=== PATIENT | female | born 2000 | race Hispanic/Latino ===

== ENCOUNTER → 2023-07-18 10:20 | Outpatient (REF) | payer OTHER, SELFPAY ==
[2023-07-18 11:13] LABS: % Basophils 0.8 % (0-2); % Immature Granulocytes 0.3 % (0-0.5); % Lymphocytes 37.4 % (20.5-51.1); % Monocytes 5.6 % (1.7-9.3); % Neutrophils 54.9 % (42.2-75.2); Absolute Lymphocytes 1.5 10^3/uL (1.2-3.4); Absolute Monocytes 0.2 10^3/uL (0.1-0.6); Absolute Neutrophils 2.2 10^3/uL (1.4-6.5); Hematocrit 33.6 % (37.0-47.0); Hemoglobin 11.1 g/dL (12.0-16.0); Mean Corpuscular Volume 87.7 fL (81.0-99.0); Mean Platelet Volume 9.3 fL (7.4-10.4); Nucleated Red Blood Cells % 0 %; Platelet Count 430 10^3/uL (130-400); Red Blood Cell Count 3.83 10^6/uL (4.20-5.40); Red Cell Dist. Width 12.3 % (11.5-14.5)
[2023-07-18 11:18] LABS: Urine Albumin Negative (Neg - Trace); Urine Bilirubin Negative (Negative); Urine Character Clear (Clear); Urine Color Yellow; Urine Glucose Negative (Negative); Urine Ketone Negative (Negative); Urine Leukocyte Negative (Negative); Urine Nitrite Negative (Negative); Urine Occult Blood Negative (Negative); Urine Specific Gravity 1.005 (<1.030); Urine Urobilinogen Negative (Neg - 1+)
[2023-07-18 11:28] LABS: Iron 71 ug/dl (37-170)
[2023-07-18 11:39] LABS: Percent Saturation 16 % (20-50); Total Iron Binding Capacity 421 ug/dl (265-497)
[2023-07-18 12:05] LABS: Ferritin 6.4 ng/ml (6.24-137)
[2023-07-18 12:19] LABS: Vitamin B12 559 pg/ml (239-931)
== END ==
LOC: REG 10:20
PROVIDERS: ATTENDING PHYSICIAN Nurse Practitioner Acute Care
DX: D64.9 Anemia, unspecified (principal); N39.0 Urinary tract infection, site not specified
CPT/HCPCS: 36415; 81003; 82607; 82728; 83540; 83550; 85025

== ENCOUNTER → 2023-08-19 09:46 | Outpatient (REF) | payer OTHER, SELFPAY ==
[2023-08-19 10:27] LABS: % Basophils 0.3 % (0-2); % Lymphocytes 37.6 % (20.5-51.1); % Monocytes 7.3 % (1.7-9.3); % Neutrophils 52.8 % (42.2-75.2); Absolute Eosinophils 0.1 10^3/uL (0-0.7); Absolute Lymphocytes 1.3 10^3/uL (1.2-3.4); Absolute Monocytes 0.3 10^3/uL (0.1-0.6); Absolute Neutrophils 1.9 10^3/uL (1.4-6.5); Hematocrit 34.7 % (37.0-47.0); Hemoglobin 11.4 g/dL (12.0-16.0); Mean Corp Hgb Conc. 32.9 g/dL (33.0-37.0); Mean Corpuscular Hgb 28.6 pg (27.0-31.0); Mean Platelet Volume 8.9 fL (7.4-10.4); Nucleated Red Blood Cells % 0 %; Platelet Count 269 10^3/uL (130-400); Red Blood Cell Count 3.99 10^6/uL (4.20-5.40); Red Cell Dist. Width 13.7 % (11.5-14.5); White Blood Cell Count 3.5 10^3/uL (4.8-10.8)
[2023-08-19 10:55] LABS: ALT (SGPT) 16 U/L (0-35); AST (SGOT) 29 U/L (14-36); Albumin 4.6 g/dl (3.5-5.0); Alkaline Phosphatase 47 U/L (38-126); Blood Urea Nitrogen 10 mg/dl (7-17); Calcium 9.4 mg/dl (8.4-10.2); Carbon Dioxide 30 mmol/L (22-30); Chloride 103 mmol/L (98-107); Glucose 90 mg/dl (70-99); Iron 133 ug/dl (37-170); Potassium 4.4 mmol/L (3.5-5.1); Sodium 136 mmol/L (135-145); Total Bilirubin 0.9 mg/dl (0.2-1.3); Total Protein 7.2 g/dl (6.3-8.2); eGFR > 60.00
[2023-08-19 11:05] LABS: Percent Saturation 38 % (20-50); Total Iron Binding Capacity 345 ug/dl (265-497)
[2023-08-19 11:32] LABS: Ferritin 7.9 ng/ml (6.24-137)
[2023-08-20 15:46] LABS: Transferrin 273 mg/dL (200-360)
== END ==
LOC: CLINIC 09:46
PROVIDERS: ATTENDING PHYSICIAN Student in an Organized Health Care Education/Training Program
DX: R68.89 Other general symptoms and signs (principal); R53.83 Other fatigue
CPT/HCPCS: 36415; 80053; 82728; 83540; 83550; 83735; 84443; 84466; 85025

== ENCOUNTER → 2023-10-14 10:59 | Outpatient (REF) | payer OTHER, SELFPAY ==
[2023-10-14 11:35] LABS: % Basophils 0.4 % (0-2); % Eosinophils 0.9 % (0-6); % Immature Granulocytes 0.2 % (0-0.5); % Lymphocytes 33.8 % (20.5-51.1); % Monocytes 6.5 % (1.7-9.3); % Neutrophils 58.2 % (42.2-75.2); Absolute Lymphocytes 1.6 10^3/uL (1.2-3.4); Absolute Monocytes 0.3 10^3/uL (0.1-0.6); Absolute Neutrophils 2.7 10^3/uL (1.4-6.5); Hematocrit 36.4 % (37.0-47.0); Hemoglobin 12.2 g/dL (12.0-16.0); Mean Corp Hgb Conc. 33.5 g/dL (33.0-37.0); Mean Corpuscular Hgb 29.1 pg (27.0-31.0); Mean Corpuscular Volume 86.9 fL (81.0-99.0); Mean Platelet Volume 8.6 fL (7.4-10.4); Nucleated Red Blood Cells % 0 %; Platelet Count 283 10^3/uL (130-400); Red Blood Cell Count 4.19 10^6/uL (4.20-5.40); Red Cell Dist. Width 13.9 % (11.5-14.5); White Blood Cell Count 4.6 10^3/uL (4.8-10.8)
[2023-10-14 12:46] LABS: ALT (SGPT) 13 U/L (0-35); AST (SGOT) 26 U/L (14-36); Albumin 4.7 g/dl (3.5-5.0); Alkaline Phosphatase 46 U/L (38-126); Blood Urea Nitrogen 11 mg/dl (7-17); Calcium 9.9 mg/dl (8.4-10.2); Carbon Dioxide 26 mmol/L (22-30); Chloride 101 mmol/L (98-107); Glucose 81 mg/dl (70-99); Iron 122 ug/dl (37-170); Magnesium 1.9 mg/dl (1.6-2.3); Potassium 4.2 mmol/L (3.5-5.1); Sodium 136 mmol/L (135-145); Total Bilirubin 0.8 mg/dl (0.2-1.3); Total Protein 7.3 g/dl (6.3-8.2); eGFR > 60.00
[2023-10-14 12:56] LABS: Percent Saturation 36 % (20-50); Total Iron Binding Capacity 332 ug/dl (265-497)
[2023-10-15 11:06] LABS: Transferrin 268 mg/dL (200-360)
== END ==
LOC: CLINIC 10:59
PROVIDERS: ATTENDING PHYSICIAN Student in an Organized Health Care Education/Training Program
DX: R68.89 Other general symptoms and signs (principal); R53.83 Other fatigue
CPT/HCPCS: 36415; 80053; 82728; 83540; 83550; 83735; 84443; 84466; 85025

== ENCOUNTER → 2024-04-17 11:58 | Outpatient (REF) | payer OTHER, SELFPAY ==
[2024-04-17 13:36] LABS: Hematocrit 36.6 % (37.0-47.0); Hemoglobin 12.5 g/dL (12.0-16.0); Mean Corp Hgb Conc. 34.2 g/dL (33.0-37.0); Mean Corpuscular Hgb 30.4 pg (27.0-31.0); Mean Corpuscular Volume 89.1 fL (81.0-99.0); Mean Platelet Volume 8.9 fL (7.4-10.4); Platelet Count 317 10^3/uL (130-400); Red Blood Cell Count 4.11 10^6/uL (4.20-5.40); Red Cell Dist. Width 12.6 % (11.5-14.5)
[2024-04-17 14:01] LABS: ALT (SGPT) 27 U/L (0-35); AST (SGOT) 34 U/L (14-36); Albumin 4.7 g/dl (3.5-5.0); Alkaline Phosphatase 41 U/L (38-126); Blood Urea Nitrogen 19 mg/dl (7-17); Calcium 9.5 mg/dl (8.4-10.2); Carbon Dioxide 24 mmol/L (22-30); Chloride 101 mmol/L (98-107); Glucose 88 mg/dl (70-99); Potassium 4.8 mmol/L (3.5-5.1); Sodium 138 mmol/L (135-145); Total Bilirubin 1.1 mg/dl (0.2-1.3); Total Protein 7.4 g/dl (6.3-8.2); eGFR > 60.00
[2024-04-20 03:09] LABS: H. pylori Breath Test Positive (Negative)
== END ==
LOC: CLINIC 11:58
PROVIDERS: ATTENDING PHYSICIAN Nurse Practitioner Adult Health
DX: D50.9 Iron deficiency anemia, unspecified (principal); R10.13 Epigastric pain
CPT/HCPCS: 36415; 80053; 83013; 85027

== ENCOUNTER → 2024-07-14 12:05 | Outpatient (REF) | payer OTHER, SELFPAY ==
[2024-07-16 09:16] LABS: H. pylori Breath Test Positive (Negative)
== END ==
LOC: REG 12:05
PROVIDERS: ATTENDING PHYSICIAN Nurse Practitioner Adult Health
DX: A04.8 Other specified bacterial intestinal infections (principal)
CPT/HCPCS: 83013

== ENCOUNTER 2024-12-01 19:32 | Emergency (ER) | payer OTHER, SELFPAY ==
[2024-12-01 19:34] VITALS: BP 98/60
[2024-12-01 19:55] LABS: Urine Albumin Negative (Neg - Trace); Urine Bilirubin Negative (Negative); Urine Character Clear (Clear); Urine Color Yellow; Urine Glucose Negative (Negative); Urine Ketone Negative (Negative); Urine Leukocyte Negative (Negative); Urine Nitrite Negative (Negative); Urine Occult Blood Negative (Negative); Urine Specific Gravity 1.015 (<1.030); Urine Urobilinogen Negative (Neg - 1+)
[2024-12-01 19:56] LABS: % Basophils 0.7 % (0-2); % Eosinophils 0.7 % (0-6); % Immature Granulocytes 0.3 % (0-0.5); % Lymphocytes 22.3 % (20.5-51.1); % Monocytes 7.5 % (1.7-9.3); % Neutrophils 68.5 % (42.2-75.2); Absolute Basophils 0.1 10^3/uL (0-0.2); Absolute Eosinophils 0.1 10^3/uL (0-0.7); Absolute Lymphocytes 1.6 10^3/uL (1.2-3.4); Absolute Monocytes 0.5 10^3/uL (0.1-0.6); Absolute Neutrophils 4.8 10^3/uL (1.4-6.5); Hematocrit 30.7 % (37.0-47.0); Hemoglobin 10.4 g/dL (12.0-16.0); Mean Corp Hgb Conc. 33.9 g/dL (33.0-37.0); Mean Corpuscular Hgb 28.9 pg (27.0-31.0); Mean Corpuscular Volume 85.3 fL (81.0-99.0); Mean Platelet Volume 8.7 fL (7.4-10.4); Nucleated Red Blood Cells % 0 %; Platelet Count 359 10^3/uL (130-400); Red Cell Dist. Width 13.6 % (11.5-14.5); White Blood Cell Count 6.9 10^3/uL (4.8-10.8)
[2024-12-01 20:18] LABS: HCG, Serum Qualitative Screen Negative
[2024-12-01 20:22] LABS: ALT (SGPT) 15 U/L (0-35); AST (SGOT) 21 U/L (14-36); Albumin 4.3 g/dl (3.5-5.0); Alkaline Phosphatase 40 U/L (38-126); Blood Urea Nitrogen 15 mg/dl (7-17); Calcium 8.9 mg/dl (8.4-10.2); Carbon Dioxide 24 mmol/L (22-30); Chloride 107 mmol/L (98-107); Glucose 116 mg/dl (70-99); Sodium 138 mmol/L (135-145); Total Bilirubin 0.6 mg/dl (0.2-1.3); Total Protein 6.7 g/dl (6.3-8.2); eGFR > 60.00
[2024-12-01 20:23] LABS: Lipase 146 U/L (23-300)
[2024-12-01 23:19] VITALS: BP 103/59; BMI 22.5
[2024-12-02] VITALS: BP 99/68
--- NOTE | 2024-12-02 00:08 | ED.GENMED ---
History of Present Illness
General
Chief Complaint: Abdominal Pain
Source: patient
Exam Limitations: none
Time Seen by Provider: 12/01/24 23:32
Nursing documentation reviewed up to this point in time: agreed with
History of Present Illness
History of Present Illness:
24-year-old female presents with pelvic cramps vaginal discharge fatigue swollen glands, she concerned she has an STD unprotected sex 2 weeks ago with a new partner, also noticed a rash, on her skin concerned that she could have syphilis history of
kidney stones no prior abdominal surgery
Past History
Past History
ED Past Medical History: Psychiatric (Anxiety, Depression) and Other (Migraines, gastritis)
ED Past Surgical History: None
Social History
Tobacco: Non-smoker
Alcohol: None
Drug: None
Personal: Single
Living: alone
Employment: Employed
Review of Systems
Review of Systems
All Other Systems: Not applicable
Constitutional: Reports fatigue; Denies fever or chills
EENT: Reports other (Swollen glands)
Respiratory: Reports no symptoms
Cardiac: Reports no symptoms
ABD/GI: Reports abdominal pain
: Reports discharge
Skin: Reports rash
Neurological: Reports no symptoms
Hematologic/Lymphatic: Reports swollen glands
Phy Exam
Physical Exam
Physical Exam:
Physical Exam
General: no apparent distress, not acutely ill
Neck: No jaundice
Heart: s1/s2 regular rate and rhythm, no murmur. equal radial pulses.
Lungs: no acute respiratory distress. clear bilaterally
Abdomen: Mild suprapubic tenderness
Neuro: alert and oriented. no focal neurological deficits
Skin: no rash
Psychiatric: well kept. interactive and cooperative
Extremities: no edema.
Course
Orders/Labs/Results
Orders:
Orders
12/01/24 19:39
Test Result ONCE
12/01/24 19:43
Urine Reflex Culture from UA [Urinalysis Reflex To Culture] Urgent
Date Specimen was Collected: 12/01/24
Time Specimen was Collected: 19:39
Chlamydia/GC by PCR Urgent
FRANCISCO JAVIER Source: Urine
Specimen Description:
Source:: URINE
Date Specimen was Collected: 12/02/24
Time Specimen was Collected: 00:15
12/01/24 19:45
Complete Blood Count/With Diff Urgent
Comprehensive Metabolic Panel Urgent
HCG, Serum Qualitative Screen Urgent
Lipase Urgent
RPR [Syphilis/T. pallidum Ab Reflex] Urgent
12/02/24 00:00
Ibuprofen [Motrin] 600 mg PO NOW STA
US Pelvis Only (non-obstetric) Urgent
Reason For Exam: pain std
12/02/24 00:04
Doxycycline [Vibramycin] 100 mg PO NOW STA
Abnormal Lab Results
12/01/24
19:45
RBC 3.60 L 10^6/uL
(4.20-5.40)
Hgb 10.4 L g/dL
(12.0-16.0)
Hct 30.7 L %
(37.0-47.0)
Glucose 116 H mg/dl
(70-99)
12/01/24 19:45
12/01/24 19:45
Vital Signs
Initial and Last Documented VS:
Initial Vital Signs
Temp Pulse Resp BP Pulse Ox
97.4 F 67 18 98/60 100
12/01/24 19:34 12/01/24 19:34 12/01/24 19:34 12/01/24 19:34 12/01/24 19:34
Last Documented Vital Signs
Temp Pulse Resp BP Pulse Ox
97.4 F 67 18 107/69 100
12/01/24 19:34 12/01/24 19:34 12/02/24 01:00 12/02/24 02:00 12/02/24 02:00
MDM/Problems Addressed
Differential Diagnosis Includes:
STD cervicitis PID TOA less likely appendicitis perhaps viral syndrome perhaps menstrual cramp
MDM/Problems Addressed:
Pelvic pain vaginal discharge unprotected sex
*Radiology
Radiology exam reviewed: radiology read reviewed
*Pulse Oximetry
SaO2: 100
Oxygen Mode of Delivery: Room air
Patient hypoxic: no
*Critical Care Note
Total Time (30-74mins, 75-104mins- exclusive of procedures): Not Applicable
Update Note
Update Note:
2:30 AM update ultrasound noted, reviewed with patient she is feeling better, her abdomen is soft and nontender she politely refused internal exam she did have some questions about herpes states she has no external lesions no painful lesions,
ED Attending Note
-
Portions of this chart may have been created with voice recognition software.� Occasional wrong word or��sound alike� substitutions may have occurred due to the inherent limitations of voice recognition software.
Discharge Plan
Departure
Patient Disposition: Home (Routine Discharge)
Date of Disposition: 12/02/24
Time of Disposition: 02:37
Patient with high blood pressure during this ER visit?: No
Condition: Good
Discharge Problem:
Pelvic pain
Instructions: Sexually transmitted infections - ED discharge instructions
Prescriptions:
New
doxycycline monohydrate 100 mg capsule
100 mg PO BID Qty: 14 0RF
ibuprofen 600 mg tablet
600 mg PO Q8H PRN (Reason: Pain) Qty: 14 0RF
No Action
trazodone 50 mg Tablet
25 mg PO DAILY
venlafaxine 50 mg Tablet
50 mg PO DAILY
propranolol 20 mg Tablet
20 mg PO DAILY
Referrals:
Carmen Medina MD [Active, Gynecology] - Next open appointment
UNKNOWN - PT DOES,NOT KNOW [Family Provider]
Activity Restrictions/Additional Instructions:
Follow-up with your primary care provider and gynecology
Use condoms
Return to the ER if any concerns
Interventions
Interventions:
*Risk Screen - Suicide Last Done: 12/01/24 19:34
*General Assessment Last Done: 12/01/24 19:34
*Neglect/Abuse Screening Last Done: 12/01/24 19:34
*ED COVID-19 Vaccine History Last Done: 12/01/24 19:34
NF-Ogscrd-Ijxfgxentx Assessment Last Done: 12/01/24 23:22
Discharge Date and Time
Print Language: GERMAN
[2024-12-02 01:00] VITALS: BP 97/61
[2024-12-02] MEDS: VIBRAMYCIN 100 MG PO (01:08)
[2024-12-02] MEDS: MOTRIN 600 MG PO (01:08)
[2024-12-02 02:00] VITALS: BP 107/69
== END 2024-12-02 02:53 | disposition home or self-care (01) ==
LOC: EMR 19:32
PROVIDERS: Emergency Medicine; EMERGENCY PHYSICIAN Emergency Medicine
DX: R10.2 Pelvic and perineal pain (principal)
CPT/HCPCS: 99285; 76856; 80053; 81003; 83690; 84703; 85025; 86780; 87491; 87591